=== PATIENT | female | born 1990 | race Caucasian/White ===

== ENCOUNTER → 2018-09-23 | Outpatient (CLI) | payer BC ==
[~2018-09-23] MED LIST: 00186-0372-20 IH; ACETAMINOPHEN W1 TA6 PO; ALBUTEROL0.83 MG/ML IH; ALEVE 220MG220 MG PO; AMBIEN 10MG10 MG PO; AMBIEN5 MG PO; AMOXICILLIN 50500 MG PO; ASPIRIN 81M81 MG/TA2 PO; ATIVAN 0.50.5 MG/TAB PO; BCP TD; BENADRYL25 M2 PO; BIRTH CONTROL; BUSPAR DIVIDOSE15 MG PO; CATAPRES 0.1MG0.1 MG PO; CELEXA; CELEXA 20MG20 MG/TAB PO; CELEXA40 MG PO; CLINDAMYCIN150 MG PO; CYMBALTA 30MG30 MG PO; DEPO-PROVER150 MG/M1 IM; DEPO-SUBQ104 MG/0.6 SC; DICLOFENAC; DIET PILL PO; DULERA1 AR1 IH; ERY-TAB250 MG PO; FENTANYL 50MCG TOP; FLEXERIL 1010 MG/TAB PO; FLONASE NASAL S16 GM NS; FOLIC ACID 11 MG/TA1 PO; GRALISE600 MG PO; HCTZ 25MG TAB25 MG PO; IBUPROFEN; K-DUR 2020 MEQ PO; LEVAQUIN 5500 MG/TA1 PO; LIDODERM PATCH TP; LORTAB 10/500 51 TAB PO; LORTAB 5/500 501 TAB PO; LUNESTA3 MG PO; LYRICA 75MG CAP75 MG PO; MAXALT MLT10 MG/TAB PO; MAXALT10 MG PO; NAPROSYN500 MG PO; NICODERM C21 MG/PATC TOP; NITROSTAT0.4 MG/TAB SL; NORCO 325 MG-101 TAB PO; NORCO 325 MG-51 TA1 PO; NORCO 325 MG-51 TAB PO; ONE DAILY WOMEN1 TAB PO; PERCOCET 325 MG1 TA2 PO; PERCOCET 325 MG1 TAB PO; PERCR 7.5 PO; PHENERGAN 25 TA25 MG PO; PHENERGAN W/CO120 M1 PO; PHENERGAN W/CO120 ML PO; PREDNISONE20 MG PO; PROAIR HFA0.09 MG/AC IH; PROMETHAZINE12.5 M5; PROTONIX 40MG T40 MG PO; PROVENTIL0.09 MG/A1 IH; ROBAXIN 75750 MG/TAB PO; SEPTRA DS 8001 TAB PO; TOPAMAX 100MG100 M1 PO; TREXIMET 500 MG1 TAB PO; TRI-SPRINTEC 281 TAB PO; TUSS PO; TYLENOL 325MG325 MG PO; TYLENOL PM; ULTRAM 50MG TAB50 MG PO; ULTRAM50 MG PO; VITAMIN C500 MG PO; VOLTAREN 50MG T50 MG PO; VOLTAREN 75 DR75 MG PO; VOLTAREN SR25 MG/TAB PO; XANAX .25M0.25 MG/TA PO; ZESTRIL2.5 MG PO; ZITHROMAX 250M250 MG PO; ZITHROMAX Z PA250 MG PO
== END ==
LOC: COL.RAD 09:08
DX: M25.512 Pain in left shoulder (principal)
CPT/HCPCS: J3301; Q9967

== ENCOUNTER → 2019-02-05 | Outpatient (CLI) | payer BC | LOC: COL.RAD 09:44 | DX: M25.512 Pain in left shoulder (principal) | CPT/HCPCS: J3301; Q9967 ==

== ENCOUNTER 2019-03-16 20:57 | Emergency (ER) | payer BC ==
[~2019-03-16] VITALS: Ht 162.6 cm; Wt 100.0 kg
[2019-03-16 21:06] VITALS: BP 145/82; PULSE 68; TEMP 97.6
[2019-03-16] MEDS ORDERED: CLEOCIN HCL300 MG PO (21:15)
== END 2019-03-16 21:35 | disposition home or self-care (01) ==
LOC: COL.ER 20:57
DX: K08.89 Other specified disorders of teeth and supporting structures (principal); F17.210 Nicotine dependence, cigarettes, uncomplicated

== ENCOUNTER → 2019-09-18 | Outpatient (CLI) | payer BC ==
[~2019-09-18] MED LIST changes: +CLEOCIN HCL300 MG PO
== END ==
LOC: COL.RAD 09:41
DX: M25.512 Pain in left shoulder (principal)
CPT/HCPCS: J3301; Q9967

== ENCOUNTER 2019-12-09 10:22 | Emergency (ER) | payer BC ==
[~2019-12-09] VITALS: Ht 162.6 cm; Wt 93.2 kg
[2019-12-09 10:27] VITALS: TEMP 97.5
[2019-12-09] MEDS ORDERED: BENADRYL50 MG PO (10:30)
[2019-12-09] MEDS ORDERED: TYLENOL PM EXTR1 TA1 PO (10:31)
[2019-12-09 11:03] LABS: BASO % 0.3 % (0.0-2.0); EOS # 0.4 (0.0-0.7); EOS % 3.8 % (0-4.0); GRAN % 53.1 % (42.2-75.2); HEMATOCRIT 42.7 % (37.0-47.0); HEMOGLOBIN 14.5 g/dl (12.5-16.0); LYMPH # 3.5 (1.2-3.4); LYMPH % 37.2 % (20.0-51.0); MEAN CELL VOLUME 90 fl (80.0-100.0); MEAN CORPUSCULAR HEMOGLOBIN 31 pg (27.0-31.0); MEAN CORPUSCULAR HGB CONC 34 g/dl (33.0-37.0); MEAN PLATELET VOLUME 10.4 fl (7.4-10.4); MONO # 0.5 (0.1-0.6); MONO % 5.3 % (1.7-9.3); PLATELET COUNT 251 K/mm3 (130-400); RED BLOOD COUNT 4.75 M/mm3 (4.10-5.30); REDCELL DISTRIBUTION WIDTH-CV 13.2 % (11.5-14.5)
[2019-12-09 11:06] LABS: ALANINE AMINOTRANSFERASE 19 U/L (4-34); ALKALINE PHOSPHATASE 49 U/L (50-136); ANION GAP 6 mmol/L (7-16); AST,SGOT 27 U/L (15-37); BILIRUBIN,TOTAL 0.2 mg/dL (0.0-1.0); BLOOD UREA NITROGEN 8 mg/dL (7-17); CARBON DIOXIDE 24 mmol/L (22-30); CHLORIDE 108 mmol/L (98-107); CREATININE, serum 0.71 (0.52-1.25); GLUCOSE 91 mg/dL (74-106); LIPASE 100 U/L (23-300); SODIUM 138 mmol/L (137-145); TOTAL PROTEIN 6.7 gm/dL (6.4-8.2)
[2019-12-09 11:11] LABS: PROTHROMBIN TIME 11.5 SECONDS (9.7-12.8)
[2019-12-09 11:19] LABS: TROPONIN-I < 0.012 ng/mL (0.000-0.035)
[2019-12-09 13:46] VITALS: BP 103/69; PULSE 78
== END 2019-12-09 13:50 | disposition home or self-care (01) ==
LOC: COL.ER 10:22
PROVIDERS: Emergency Medicine
DX: R07.89 Other chest pain (principal); I10 Essential (primary) hypertension; F17.210 Nicotine dependence, cigarettes, uncomplicated; Z90.710 Acquired absence of both cervix and uterus
CPT/HCPCS: J2060; J7030

== ENCOUNTER 2023-05-13 15:42 | Emergency (ER) | payer OTHER ==
[~2023-05-13] VITALS: Ht 162.6 cm; Wt 100.0 kg
[~2023-05-13 15:42] MED LIST changes: +AMOXICILLIN 8751 TAB PO; +BACTRIM DS 8001 TAB PO; +BENADRYL50 MG PO; +TYLENOL PM EXTR1 TA1 PO
[2023-05-13 16:05] VITALS: BP 128/89; TEMP 98
[2023-05-13 19:03] LABS: BASO % 0.3 % (0.0-2.0); EOS # 0.3 K/mm3 (0.0-0.7); EOS % 3.9 % (0.0-4.0); GRAN # 3.9 K/mm3 (1.4-6.5); GRAN % 55.8 % (42.2-75.2); HEMATOCRIT 42.1 % (37.0-47.0); HEMOGLOBIN 13.9 g/dl (12.5-16.0); LYMPH # 2.3 K/mm3 (1.2-3.4); LYMPH % 32.7 % (20.0-51.0); MEAN CELL VOLUME 93 fl (80.0-100.0); MEAN CORPUSCULAR HEMOGLOBIN 31 pg (27-31); MEAN CORPUSCULAR HGB CONC 33 g/dl (33.0-37.0); MEAN PLATELET VOLUME 9.5 fl (7.4-10.4); MONO # 0.5 K/mm3 (0.1-0.6); MONO % 7.2 % (1.7-9.3); PLATELET COUNT 255 K/mm3 (130-400); RED BLOOD COUNT 4.54 M/mm3 (4.10-5.30); REDCELL DISTRIBUTION WIDTH-CV 13.4 % (11.5-14.5)
[2023-05-13 19:36] LABS: ALBUMIN 3.5 gm/dL (3.5-5.0); BILIRUBIN,TOTAL 0.2 mg/dL (0.2-1.2); C-REACTIVE PROTEIN 2.3 mg/dL (0.00-0.50); CALCIUM 9.6 mg/dL (8.4-10.2); CREATININE, serum 0.76 mg/dL (0.57-1.11); POTASSIUM 3.9 mmol/L (3.5-4.5); TOTAL PROTEIN 6.6 gm/dL (6.2-8.1)
[2023-05-13 21:40] VITALS: PULSE 89
== END 2023-05-13 21:44 | disposition home or self-care (01) ==
LOC: COL.ER 15:42
PROVIDERS: Nurse Practitioner
DX: K04.7 Periapical abscess without sinus (principal); K02.9 Dental caries, unspecified; F17.200 Nicotine dependence, unspecified, uncomplicated; Z28.310 Unvaccinated for COVID-19; Z88.0 Allergy status to penicillin; Z88.1 Allergy status to other antibiotic agents
CPT/HCPCS: J0737; J2270; Q9967

== ENCOUNTER 2023-10-30 15:24 | Emergency (ER) | payer MEDICAID ==
[~2023-10-30] VITALS: Ht 162.6 cm; Wt 100.0 kg
[2023-10-30] MEDS ORDERED: NS 500 ML IV ONE (16:00)
[2023-10-30] MEDS ORDERED: diphenhydrAMINE 50 MG/ML 1 ML VIAL IV ONE (16:00)
[2023-10-30] MEDS ORDERED: Ketorolac 30 MG/ML VIAL IV ONE (16:00)
[2023-10-30] MEDS ORDERED: ULTRAM 50MG TAB50 MG PO (17:33)
[2023-10-30] MEDS ORDERED: CLEOCIN HC150 MG/CAP PO (17:33)
[2023-10-30 18:48] VITALS: BP 118/82; PULSE 95; TEMP 98.3
[2023-11-01] MEDS ORDERED: ZOFRAN ODT4 MG PO (01:53)
== END 2023-10-30 18:48 | disposition home or self-care (01) ==
LOC: COL.ER 15:24
DX: G43.009 Migraine without aura, not intractable, without status migrainosus (principal); K04.7 Periapical abscess without sinus; F17.210 Nicotine dependence, cigarettes, uncomplicated
CPT/HCPCS: J0737; J1200; J1885; J2765; J3475; J7040

== ENCOUNTER 2023-11-12 17:04 | Emergency (ER) | payer MEDICAID ==
[~2023-11-12] VITALS: Ht 162.6 cm; Wt 100.0 kg
[~2023-11-12 17:04] MED LIST changes: +CLEOCIN HC150 MG/CAP PO; +ZOFRAN ODT4 MG PO
[2023-11-12 17:09] VITALS: TEMP 98.2
[2023-11-12] MEDS ORDERED: Meclizine 25 MG TAB PO ONE (17:45)
[2023-11-12] MEDS ORDERED: ANTIVERT 25MG25 MG PO (18:18)
[2023-11-12 18:33] VITALS: BP 147/90; PULSE 79
== END 2023-11-12 18:33 | disposition home or self-care (01) ==
LOC: COL.ER 17:04
DX: H81.10 Benign paroxysmal vertigo, unspecified ear (principal)

== ENCOUNTER 2024-02-13 11:39 | Emergency (ER) | payer MEDICAID ==
[~2024-02-13] VITALS: Ht 162.6 cm; Wt 112.7 kg
[~2024-02-13 11:39] MED LIST changes: +ANTIVERT 25MG25 MG PO
[2024-02-13 12:01] VITALS: TEMP 98
[2024-02-13] MEDS ORDERED: NS 1,000 ML IV ONE (12:30)
[2024-02-13] MEDS ORDERED: diphenhydrAMINE 50 MG/ML 1 ML VIAL IV ONE (12:30)
[2024-02-13 13:50] VITALS: BP 115/77; PULSE 82
[2024-02-27] MEDS ORDERED: VALIUM 5MG T5 MG/TAB PO (10:12)
[2024-02-27] MEDS ORDERED: TOFRANIL50 MG PO (10:13)
[2024-02-27] MEDS ORDERED: CELEBREX 1100 MG/CAP PO (10:13)
[2024-02-27] MEDS ORDERED: FLONASEALLERGY NS (10:14)
[2024-02-27] MEDS ORDERED: NORCO 325 MG-7.1 TAB PO (10:14)
[2024-02-27] MEDS ORDERED: MAXZIDE-25MG TA1 TAB PO (10:15)
[2024-02-27] MEDS ORDERED: ZIAC 2.5/6.25MG1 TAB PO (11:41)
== END 2024-02-13 13:50 | disposition home or self-care (01) ==
LOC: COL.ER 11:39
DX: R42 Dizziness and giddiness (principal)
CPT/HCPCS: J1200; J2765; J7030

== ENCOUNTER 2024-04-08 14:43 | Emergency (ER) | payer MEDICAID ==
[~2024-04-08] VITALS: Ht 162.6 cm; Wt 100.0 kg
[~2024-04-08 14:43] MED LIST changes: +CELEBREX 1100 MG/CAP PO; +FLONASEALLERGY NS; +MAXZIDE-25MG TA1 TAB PO; +NORCO 325 MG-7.1 TAB PO; +TOFRANIL50 MG PO; +VALIUM 5MG T5 MG/TAB PO; +ZIAC 2.5/6.25MG1 TAB PO
[2024-04-08 14:55] VITALS: BP 108/76; PULSE 86; TEMP 98.3
== END 2024-04-08 16:15 | disposition left against medical advice (07) ==
LOC: COL.ER 14:43
DX: R42 Dizziness and giddiness (principal); R11.0 Nausea

== ENCOUNTER 2024-06-09 11:35 | Emergency (ER) | payer MEDICAID ==
[~2024-06-09] VITALS: Ht 162.6 cm; Wt 100.0 kg
[2024-06-09 11:47] VITALS: TEMP 98.4
[2024-06-09] MEDS ORDERED: LEVAQUIN 750MG750 M1 PO (12:44)
[2024-06-09 12:56] VITALS: BP 120/74; PULSE 84
== END 2024-06-09 12:56 | disposition home or self-care (01) ==
LOC: COL.ER 11:35
DX: J20.9 Acute bronchitis, unspecified (principal)